=== PATIENT | female | born 1995 | race Caucasian/White ===

== ENCOUNTER → 2017-04-28 15:35 | Outpatient (CLI) | payer OTHER, SELFPAY ==
[2017-04-28 17:17] LABS: Chlamydia Trachomatis by PCR Negative (Negative); Neisserai gonorrhoeae by PCR Negative (Negative); Probe Check PASS; Sample Adequacy Control PASS; Specimen Processing Control PASS
== END ==
PROVIDERS: Family Provider Pediatrics; PCP Pediatrics; Visit Provider Obstetrics & Gynecology
DX: Z12.4 Encounter for screening for malignant neoplasm of cervix (principal); Z11.3 Encounter for screening for infections with a predominantly sexual mode of transmission
CPT/HCPCS: 87491; 87591; 88175; G0145

== ENCOUNTER 2017-08-01 16:31 | Emergency (ER) | payer OTHER, SELFPAY ==
[2017-08-01 16:32] VITALS: BP 113/72; PULSE 92; RESP 16; TEMP 36.6; O2SAT 98; BMI 26.6
--- NOTE | 2017-08-01 16:47 | US_ITS ---
STUDY: ULTRASOUND TRANSVAGINAL CLINICAL: Female, 21 years old. Pain. TECHNIQUE: Transvaginal COMPARISON: None. FINDINGS: Normal uterine size measuring 7.1 x 4.8 x 4.1 cm in maximal craniocaudal dimension. There are no myometrial masses. Normal endometrial thickness measuring 9.3 mm. There are no endometrial masses, and there is no fluid in the endometrial cavity. Normal uterine cervix. Normal right ovary, measuring 2.7 x 2.8 x 1.9 cm. There are multiple follicles without a dominant cyst. Normal left ovary, measuring 4.0 x 1.3 x 1.6 cm. There are multiple follicles without a dominant cyst. There is trace free fluid in the pelvis. Polycystic ovary disease: No. US/Transvaginal Non- IMPRESSION: Within normal limits. Electronically Signed: Shayne Cooper MD at 18:42 EDT , Service support ,
[2017-08-01 17:28] LABS: Mucous, Urine 0 SEEN /hpf (<or=2+); Red Blood Cells-Urine 0 SEEN /hpf (0-5)
[2017-08-01 17:36] LABS: Color, Urine Yellow (Yellow); Glucose, Dipstick Normal (Normal); Ketone-Dipstick 5 mg/dl (Negative); Leukocyte Esterase-Dipstick 25 /ul (Negative); Nitrite-Dipstick Negative (Negative); Occult Blood-Urine Negative /ul (Negative); Protein-Dipstick Negative (Negative); Urine Bilirubin Dipstick Negative (Negative); Urine Clarity Clear (Clear); Urine Urobilinogen Normal (Normal)
[2017-08-01 17:40] LABS: hCG Titer Quant., Serum < 1 mIU/mL (<9 non-preg)
[2017-08-01 18:26] LABS: Bacteria RARE /hpf (None Seen); Squamous Epithelial Cells - UA 0-5 SEEN /hpf (5-10); White Blood Cells 0-5 SEEN /hpf (0-5)
[2017-08-01 18:37] VITALS: BP 118/67; PULSE 68; RESP 18; O2SAT 100
--- NOTE | 2017-08-01 19:19 | ED.VISSUMM ---
- ER Visit Summary Date of Service: 08/01/17 Chief Complaint: [Pelvic cramping] History of Present Illness: The patient is a 21 F [who presents the emergency department with lower abdominal cramping. It has been going on for a week and a half. It is intermittent its moderate in nature no nausea vomiting she has had slightly loose stools urination has been normal she started conceive plus this month because she is trying to get for the last 2 months. She took a urine test at home that was negative her last menstrual period was July 09. She is followed by Dr. Wallace. She is otherwise healthy. She takes vitamins and folic acid. She does not smoke or drink alcohol. She has had missed no discharge or odors. She has been recently tested for GC and chlamydia.] Physical Examination: [] WN WD NAD PERRL EOMI MMM NECK supple and nontender, no masses RRR no murmur rub or gallop, no peripheral edema, symmetric radial pulses CTAB no respiratory distress ABDOMEN is soft and nontender, normal bowel sounds, no distension, no rebound or guarding Pelvic exam reveals mild white clumpy discharge no other acute process SKIN is warm and dry no rashes Alert and Oriented x3, CN II-XII in tact, no motor or sensory deficits, gait normal No lymphadenopathy Test Results: [] Emergency Department Course and Treatment: [Urinalysis was unremarkable. HCG was negative. Ultrasound was negative. I did ask her to follow-up with Dr. Araujo. I do not think she has an acute intra-abdominal emergency at this time. She understands that follow-up is warranted.] Treatment Plan: [] Disposition: [disCharge] Impression: [Pelvic pain] This note was generated with [employer] dictation software. It may contain incorrect words, spelling, and punctuation that were not noted in review of the chart prior to signing ED Disposition - Plan for ED Patient: Chief Complaint: Abd Pain Referrals: Care Physician,No Primary [Primary Care Provider] -
--- NOTE | 2017-08-01 19:22 | ED.DEP ---
ED Disposition - Plan for ED Patient: Chief Complaint: Abd Pain Instructions: ED Pelvic Pain [facility] Referrals: Praveen Wallace MD [STAFF PHYSICIAN] - 3-5 Days
[2017-08-01 19:43] VITALS: BP 120/70; PULSE 62; RESP 18; O2SAT 100
[2017-08-01 20:24] LABS: Chlamydia Trachomatis by PCR Negative (Negative); Neisserai gonorrhoeae by PCR Negative (Negative); Probe Check PASS; Sample Adequacy Control PASS; Specimen Processing Control PASS
== END 2017-08-01 19:43 | disposition home or self-care (01) ==
LOC: ED 16:49
PROVIDERS: Emergency Provider Emergency Medicine
DX: R10.2 Pelvic and perineal pain (principal)
CPT/HCPCS: 36415; 76830; 81001; 84702; 87210; 87491; 87591; 93976; 99282

== ENCOUNTER → 2017-11-02 13:38 | Outpatient (CLI) | payer OTHER, SELFPAY ==
--- NOTE | 2017-11-02 13:41 | US_ITS ---
STUDY: ULTRASOUND BREAST - RIGHT REASON FOR EXAM: Female, 21 years old. 3 day history of right breast lump. TECHNIQUE: Axial and longitudinal images of the RIGHT breast were performed with a high resolution ultrasound transducer. COMPARISON: None. FINDINGS: RIGHT Breast: There is a 1.7 cm x 1.6 cm x 1.7 cm well defined and demarcated hypoechoic nodule at the 7:00 position breast at 1 cm from the nipple. This has some posterior acoustical enhancement. This corresponds to the palpable abnormality. This most likely represents a fibroadenoma. A biopsy is recommended. US/Breast Limited Unilateral IMPRESSION: The palpable abnormality corresponds to a 1.7 cm x 1.6 cm x 1.7 cm hypoechoic well-defined nodular density with some posterior acoustical enhancement. A biopsy is recommended for further evaluation. ASSESSMENT CATEGORY: BIRADS Category 4: Suspicious - Biopsy Should Be Considered. A letter regarding these results will be sent to the patient by the facility within 30 days. Electronically Signed: Jacob Mccurdy MD at 15:27 EDT Tel [phone], Service support ,
== END ==
PROVIDERS: Visit Provider Obstetrics & Gynecology
DX: N63.0 Unspecified lump in unspecified breast (principal)
CPT/HCPCS: 76642

== ENCOUNTER → 2017-11-04 13:10 | Outpatient (CLI) | payer OTHER, SELFPAY ==
--- NOTE | 2017-11-04 | BRBX_PTH ---
PATIENT: DILCIA SIMPSON LOC: [facility] U#:[id number] AGE/SX: 29/F ROOM: RE11/04/[address]: Dr. Mc Mondragon MD : 1995 BED: DIS: SPEC #: [id number] RECD: 11/04/17 10:30 STATUS: SUMEET EUNICE #: [id number] JOSE R: 11/04/17 00:[address]: Mc Mondragon DEPT: SURGICAL PATHOLOGY RECD BY: Cameron Gordon ENTERED: 11/07/17 10:31 SP TYPE: BREAST BX OTHR DR: No Primary Care Phys Tissues: Right breast, NOS Procedures: Surgery Specimen Level IV HEADER OPERATION: Ultrasound-guided right breast biopsy PRE-OP DIAGNOSIS: Right breast mass TISSUE SUBMITTED: Right breast tissue ISCHEMIC TIME: <1 minute FIXATION TIME: 77.5 hours MICROSCOPIC DIAGNOSIS Right breast mass, ultrasound-guided core biopsy: Fibroadenoma. Negative for atypia or malignancy. SJ:deb 11/08/17 COMMENT Correlation with clinical, radiologic findings and appropriate follow up are necessary. MICROSCOPIC DESCRIPTION Slides are reviewed. GROSS DESCRIPTION Received in fixative is one container labeled with the patient's name and designated right breast biopsy. The specimen consists of two elongated fragments of perez-yellow fibroadipose tissue that in aggregate measure 1.5 x 0.2 x 0.1 cm. The entire specimen is submitted in one cassette. / MANOLO:deb 11/07/17 TC:1 CPT: 81136
== END ==
PROVIDERS: Visit Provider Surgery
DX: N63.0 Unspecified lump in unspecified breast (principal)
CPT/HCPCS: 88305

== ENCOUNTER → 2020-04-07 14:51 | Outpatient (CLI) | payer SELFPAY ==
[2017-11-04 12:40] VITALS: BMI 27.8
[2020-04-10 20:23] LABS: HPV APTIMA, High Risk Negative (Negative); HPV Reflexed? YES, CHARGE PATIENT
== END ==
PROVIDERS: Visit Provider Obstetrics & Gynecology
DX: Z12.4 Encounter for screening for malignant neoplasm of cervix (principal)
CPT/HCPCS: 87624; 88175; G0145